=== PATIENT | female | born 1950 | race Caucasian/White ===

== ENCOUNTER 2020-05-29 09:07 | Observation (INO) | payer MEDICARE, OTHER ==
[~2020-05-29] VITALS: Ht 160 cm; Wt 64.4 kg
[2020-05-29] MEDS ORDERED: ASPIRIN 325 MG TABLET ONE (09:32)
[2020-05-29] MEDS ORDERED: NITROGLYCERIN 0.4 MG SL TAB SL ONE (09:32)
[2020-05-29] MEDS ORDERED: ENOXAPARIN SODIUM 60 MG/0.6 ML SQ ONE (09:32)
[2020-05-29] MEDS ORDERED: NITROGLYCERIN 1GM/1 INCH PACKET TD ONE (09:32)
[2020-05-29 09:37] LABS: BASOPHILS % (AUTO) 1.2 % (0.0-5.0); EOSINOPHILS % (AUTO) 2.3 % (0.0-8.0); HEMATOCRIT 41.8 % (36-48); LYMPHOCYTES % (AUTO) 34.2 % (21.0-51.0); MEAN CORPUSCULAR HEMOGLOBIN 29.2 pg (27.0-33.0); MEAN CORPUSCULAR VOLUME 88.6 fL (79-99); MONOCYTES % (AUTO) 7.8 % (3.0-13.0); NEUTROPHILS % (AUTO) 54.3 % (40.0-77.0); PLATELET COUNT (AUTO) 262 K/uL (130-400); RED BLOOD CELL COUNT(AUTO) 4.72 MIL/uL (4.00-5.50); WHITE BLOOD COUNT (AUTO) 5.1 K/uL (4.8-10.8)
[2020-05-29 09:46] LABS: CREATININE 1.1 mg/dL (0.5-1.5); POTASSIUM 3.8 mmol/L (3.5-5.1)
[2020-05-29 09:49] LABS: INR 0.96 (0.85-1.15); PROTHROMBIN TIME 10.5 SEC (9.6-11.6)
[2020-05-29 09:50] LABS: PARTIAL THROMBOPLASTIN TIME 30.2 SEC (26.3-35.5)
[2020-05-29 09:55] LABS: ALBUMIN 3.8 g/dL (3.5-5.0); BILIRUBIN,TOTAL 0.7 mg/dL (0.2-1.0); TOTAL PROTEIN, SERUM 7.9 g/dL (6.0-8.3)
[2020-05-29 09:58] LABS: APPEARANCE,URINE Clear (CLEAR); BILIRUBIN,URINE Negative (NEGATIVE); COLOR,URINE Yellow (YELLOW); GLUCOSE, URINE (UA) Negative (NEGATIVE); KETONES,URINE Negative (NEGATIVE); LEUKOCYTE ESTERASE ,URINE Negative (NEGATIVE); NITRATE,URINE Negative (NEGATIVE); OCCULT BLOOD,URINE Negative (NEGATIVE); PH,URINE 7.5 (5.0-8.0); PROTEIN,URINE Negative (NEGATIVE); UROBILINOGEN,URINE 0.2 mg/dL (0.2-1.0)
[2020-05-29] MEDS ORDERED: ACETAMINOPHEN 325 MG TAB PO PRN ×2 (11:00)
[2020-05-29] MEDS ORDERED: ONDANSETRON HCL 4 MG/2 ML VIAL IV PRN (11:00)
[2020-05-29] MEDS ORDERED: LACTULOSE 20 GM/30 ML UDCUP PO PRN (11:00)
[2020-05-29 12:26] LABS: THYROID STIMULATING HORMONE 3.67 uIU/mL (0.36-3.74)
[2020-05-29 16:18] VITALS: BP 118/79
[2020-05-29] MEDS: NITROGLYCERIN 1GM/1 INCH PACKET TD SCH ×2 (16:45→18:04)
[2020-05-29] MEDS ORDERED: LEVO112C4 PO (18:01)
[2020-05-29] MEDS ORDERED: ESTR0.5T PO (18:01)
[2020-05-29 19:00] VITALS: BP 140/75
[2020-05-29] MEDS ORDERED: PANTOPRAZOLE 40 MG/VIAL IVP SCH (20:45)
[2020-05-29] MEDS: METOPROLOL TARTRATE 25 MG TAB PO SCH (21:00)
[2020-05-29] MEDS ORDERED: ATORVASTATIN CALCIUM 20 MG TABLET PO SCH (21:00)
[2020-05-29] MEDS: FAMOTIDINE 20MG TAB 20 MG TAB PO SCH (21:04)
[2020-05-30] VITALS: BP 126/76
[2020-05-30 04:00] VITALS: BP 119/73
[2020-05-30 05:54] LABS: EOSINOPHILS % (AUTO) 2.2 % (0.0-8.0); HEMATOCRIT 36.6 % (36-48); LYMPHOCYTES % (AUTO) 30.1 % (21.0-51.0); MEAN CORPUSCULAR HEMOGLOBIN 29.2 pg (27.0-33.0); MEAN CORPUSCULAR HGB CONC 33.3 g/dL (32.0-36.0); MEAN CORPUSCULAR VOLUME 87.6 fL (79-99); MONOCYTES % (AUTO) 8.6 % (3.0-13.0); NEUTROPHILS % (AUTO) 57.9 % (40.0-77.0); PLATELET COUNT (AUTO) 229 K/uL (130-400); RED BLOOD CELL COUNT(AUTO) 4.18 MIL/uL (4.00-5.50); RED CELL DISTRIBUTION WIDTH 12.9 % (11.0-15.5)
[2020-05-30 06:09] LABS: CREATININE 1.1 mg/dL (0.5-1.5); POTASSIUM 4.2 mmol/L (3.5-5.1)
[2020-05-30 08:00] VITALS: BP 138/80
[2020-05-30] MEDS ORDERED: ENOXAPARIN SODIUM 40 MG/0.4 ML SYRINGE SQ SCH (09:00)
[2020-05-30] MEDS ORDERED: ASPIRIN 325 MG TABLET PO SCH (09:00)
[2020-05-30] MEDS: METOPROLOL TARTRATE 25 MG TAB PO SCH (09:00)
[2020-05-30] MEDS ORDERED: ASPIRIN 81MG TAB.CHEW ONE (09:09)
[2020-05-30] MEDS: FAMOTIDINE 20MG TAB 20 MG TAB PO SCH (09:17)
[2020-05-30 11:44] VITALS: BP 136/73
[2020-05-30] MEDS ORDERED: PANT40TA PO (15:55)
[2020-05-30] MEDS ORDERED: METO25 PO (15:55)
[2020-05-30] MEDS ORDERED: ATOR20TA65 PO (15:55)
[2020-05-30 16:00] VITALS: BP 154/69
[2020-05-30] MEDS ORDERED: PANTOPRAZOLE SODIUM 40 MG TABLET.DR PO SCH ×2 (17:00→21:00)
== END 2020-05-30 17:59 | disposition home or self-care (01) ==
LOC: EDH 09:07 → EDHIP 10:52 → 4BH 15:26
PROVIDERS: ADMIT Family Medicine; ATTEND Family Medicine
DX: R07.89 Other chest pain (principal); Z20.822 Contact with and (suspected) exposure to COVID-19; E89.0 Postprocedural hypothyroidism; I24.9 Acute ischemic heart disease, unspecified; I34.0 Nonrheumatic mitral (valve) insufficiency; F17.200 Nicotine dependence, unspecified, uncomplicated; Z79.899 Other long term (current) drug therapy; Z88.8 Allergy status to other drugs, medicaments and biological substances; Z88.5 Allergy status to narcotic agent; Z88.2 Allergy status to sulfonamides
CPT/HCPCS: 36415 ×2; 71045; 80048; 80053; 80061; 81003; 84443; 84484 ×3; 85025 ×2; 85378; 85610; 85730; 87426; 93005 ×3; 93306; 93356; 96374; 99285; C9113; G0378 ×30; J1650; U0003